=== PATIENT | female | born 1930 | race Caucasian/White ===

== ENCOUNTER 2019-09-26 14:28 | Emergency (ER) | payer MEDICARE, BC ==
[~2019-09-26] VITALS: Ht 154.9 cm; Wt 59.1 kg
[2019-09-26 14:29] VITALS: BP 139/68
[2019-09-26] MEDS ORDERED: HYDROcodone/acetaminophen 5mg/325mg tablet PO ONE (15:20)
[2019-09-26] MEDS ORDERED: WALKERFR (15:49)
== END 2019-09-26 16:08 | disposition home or self-care (01) ==
LOC: ER 14:28
DX: S82.092A Other fracture of left patella, initial encounter for closed fracture (principal); I10 Essential (primary) hypertension; Z88.0 Allergy status to penicillin; Z88.2 Allergy status to sulfonamides; W18.09XA Striking against other object with subsequent fall, initial encounter; Y93.01 Activity, walking, marching and hiking; Y92.89 Other specified places as the place of occurrence of the external cause; Y99.9 Unspecified external cause status
CPT/HCPCS: 29505; 73564; 99283